=== PATIENT | male | born 1960 | race Caucasian/White ===

== ENCOUNTER 2022-03-13 18:20 | Emergency (ER) | payer OTHER, MEDICAID ==
[~2022-03-13] VITALS: Ht 177.8 cm; Wt 95.3 kg
[2022-03-13 18:37] VITALS: BP 121/83
[2022-03-13] MEDS ORDERED: TETRACAINE HCL 0.5% OPTH(EYE) SOLN 4ML LEFTEYE ONE (21:45)
[2022-03-13] MEDS ORDERED: FLUORESCEIN SOD OPTH TEST STRIP ONE (21:53)
== END 2022-03-14 00:18 | disposition home or self-care (01) ==
LOC: ER 18:20
DX: S05.8X2A Other injuries of left eye and orbit, initial encounter (principal); T15.92XA Foreign body on external eye, part unspecified, left eye, initial encounter; X58.XXXA Exposure to other specified factors, initial encounter; Y93.89 Activity, other specified; Y92.89 Other specified places as the place of occurrence of the external cause; Y99.8 Other external cause status